=== PATIENT | female | born 1985 | race Caucasian/White ===

== ENCOUNTER 2018-02-03 06:11 | Day surgery (SDC) | payer BC ==
[2018-02-03 06:46] LABS: NEG OBC UR NEG; POS OBC UR POS; U PREG PATIENT NEGATIVE (NEG)
[2018-02-03] MEDS ORDERED: PROCHLORPERAZINE 10 MG/2 ML VIAL. IV (07:00)
[2018-02-03] MEDS: IV RINGERS,LACTATED 1000ML 1,000 ML IV (07:00)
[2018-02-03] MEDS ORDERED: LIDOCAINE 1% PF 2 ML VIAL. ID (07:00)
[2018-02-03] MEDS ORDERED: ONDANSETRON PF 4 MG/2 ML VIAL. IV (07:00)
[2018-02-03] MEDS ORDERED: MORPHINE SULFATE 2 MG/ML DISP.SYRIN. IV (07:00)
[2018-02-03] MEDS ORDERED: fentaNYL PF VIAL 100 MCG/2 ML VIAL IV (07:00)
[2018-02-03] MEDS ORDERED: MIDAZOLAM HCL/PF 2 MG/2 ML VIAL. (07:02)
[2018-02-03] MEDS ORDERED: PROPOFOL 20 ML IV (07:02)
[2018-02-03] MEDS ORDERED: LIDOCAINE 2% PF Vial for OR 5 ML VIAL. (07:02)
[2018-02-03] MEDS ORDERED: ONDANSETRON PF 4 MG/2 ML VIAL. (07:16)
[2018-02-03] MEDS ORDERED: DEXAMETHASONE SOD PHOS 20 MG/5 ML VIAL. (07:16)
[2018-02-03] MEDS ORDERED: FAMOTIDINE 20 MG/2 ML VIAL (07:16)
[2018-02-03] MEDS ORDERED: fentaNYL PF VIAL 100 MCG/2 ML VIAL (07:16)
[2018-02-03] MEDS ORDERED: SEVOFLURANE 16 TO 30 MINUTES. IH (07:51)
[2018-02-03] MEDS: fentaNYL PF VIAL 100 MCG/2 ML VIAL IV (08:29)
[2018-02-03] MEDS: HYDROcodone/APAP 5/325MG 1 TAB TABLET PO (08:59)
[2018-02-03] MEDS ORDERED: ceFAZolin 2GM PREMIX 2 GM/50 ML BAG IV (12:00)
[2018-02-03] MEDS: BUPIVACAINE MPF 0.25% 30 ML VIAL. (13:47)
== END 2018-02-03 09:45 | disposition home or self-care (01) ==
LOC: SURG 06:11
DX: G56.01 Carpal tunnel syndrome, right upper limb (principal); J45.909 Unspecified asthma, uncomplicated; Z72.89 Other problems related to lifestyle; K08.409 Partial loss of teeth, unspecified cause, unspecified class; Z79.899 Other long term (current) drug therapy
CPT/HCPCS: 64721; 81025; A7015; J0690; J1100; J2001; J2250; J2405; J2704; J3010; J3490; J7120; S0028